=== PATIENT | female | born 2000 | race Caucasian/White ===

== ENCOUNTER 2025-07-14 00:06 | Emergency (ER) | payer MEDICAID ==
[~2025-07-14] VITALS: Ht 165.1 cm; Wt 77.0 kg
[2025-07-14 00:08] VITALS: O2SAT 96
[2025-07-14] MEDS: LEVETIRACETAM 500MG PREMIX 100 ML IV ONE ×2 (01:13→01:54)
[2025-07-14 01:31] LABS: BASOPHILS % 0.4 % (0.0-2.0); EOSINOPHILS % 0.6 % (0.0-5.0); HEMATOCRIT. 36.6 % (36.0-48.0); HEMOGLOBIN. 11.5 g/dL (12.0-16.0); LYMPHOCYTES % 15.2 % (20.0-50.0); MEAN PLATELET VOLUME 8.7 fl (7.4-10.4); MONOCYTES % 6.8 % (2.0-8.0); NEUTROPHILS % 77.0 % (40.0-76.0); PLATELET 176 x1000/uL (130-400); RED BLOOD CELL COUNT 4.38 mill/uL (4.2-5.4); RED CELL DISTRIBUTION WIDTH 14.2 % (11.6-14.6)
[2025-07-14 01:45] LABS: CREATININE 0.7 mg/dL (0.6-1.0); ETHANOL BLOOD < 10 mg/dL (<10); UREA NITROGEN BLOOD 11 mg/dL (9-23)
[2025-07-14 01:47] LABS: ASPARTATE AMINOTRANSFERASE 28 IU/L (<34); BILIRUBIN TOTAL 1.3 mg/dL (0.1-1.0); PROTEIN TOTAL 7.6 g/dL (6.0-8.3)
[2025-07-14 03:57] VITALS: BP 110/70; PULSE 85; RESP 20; TEMP 37.5; O2SAT 100
== END 2025-07-14 04:00 | disposition home or self-care (01) ==
LOC: ER 00:06
DX: R56.9 Unspecified convulsions (principal); F11.90 Opioid use, unspecified, uncomplicated; Z91.148 Patient's other noncompliance with medication regimen for other reason
CPT/HCPCS: 80053; 80320; 85025; 36415; 96365; 96366; 99284; J1953; Z7610; A4606; G0480